=== PATIENT | female | born 1980 ===

== ENCOUNTER → 2025-08-15 08:48 | Outpatient (CLI) | payer OTHER, SELFPAY ==
--- NOTE | 2025-08-15 08:52 | DI.MG.S_ITS ---
MM diagnostic mammo unilat LT: 08/15/2025. BI-RADS: 2 CLINICAL: 45-year old female for left diagnostic mammogram. Tyrer-Cuzick lifetime risk of 11.2%. No personal or first-degree family history of breast cancer. The patient presents for additional evaluation of an inconclusive screening mammogram. PRIOR EXAMS: Outside mammogram 05/17/2025. MAMMOGRAPHY TECHNIQUE: 2D and 3D (tomosynthesis) digital mammographic views obtained, with additional images as needed for full coverage. Current study was also evaluated with a Computer Aided Detection (CAD) system. DENSITY Left: B. There are scattered areas of fibroglandular density. MAMMOGRAPHY FINDINGS Left: Outer at 3:00, Middle depth, measuring 0.8cm: Correlating with findings on screening mammogram there are benign grouped milk of calcium calcifications. IMPRESSION: Left * No evidence of malignancy with benign findings. RECOMMENDATIONS Bilateral * Annual screening mammography. COMMENTS: Findings and recommendations were conveyed to the patient during today's evaluation. OVERALL ASSESSMENT CATEGORY BI-RADS-2: Benign. The [employer] recommends annual screening mammography beginning at age 40 for women with average risk of breast cancer. ELECTRONICALLY SIGNED: Johanna Martin M.D. on 08/15/2025 at 10:02:43 AM PT Interpreting Station ID: [id number]
== END ==
LOC: MAMMO 08:51
PROVIDERS: PCP Nurse Practitioner Family; Referring Provider Nurse Practitioner Family; Visit Provider Nurse Practitioner Family
DX: R92.1 Mammographic calcification found on diagnostic imaging of breast (principal); R92.322 Mammographic fibroglandular density, left breast
CPT/HCPCS: 77065; G0279